=== PATIENT | female | born 1990 | race American Indian/Alaskan Native ===

== ENCOUNTER 2018-11-18 12:14 | Inpatient (IN) | payer BC ==
[2018-11-18 22:14] VITALS: BMI 22.5
[2018-11-19 06:59] LABS: HEMOGLOBIN 12.5 g/dL (12.0-16.0); MEAN CORPUSCULAR HEMOGLOBIN 29.2 pg (27.0-31.0); MEAN CORPUSCULAR HGB CONC 32.8 g/dL (33.0-37.0); RBC 4.28 Mil/uL (3.80-5.20); RED CELL DISTRIBUTION WIDTH 16.9 % (11.5-14.5); WHITE BLOOD COUNT 4.3 K/uL (4.8-10.8)
[2018-11-19 07:01] LABS: ALB/GLOB RATIO 1.3 (1.0-2.1); ALBUMIN 4.5 g/dL (3.5-5.0); ALT/SGPT 44 U/L (9-52); AST/SGOT 40 U/L (14-36); BLOOD UREA NITROGEN 13 mg/dl (7-17); CALCIUM 9.2 mg/dL (8.4-10.2); GFR NON-AFRICAN AMERICAN > 60
[2018-11-19 07:02] LABS: INR 1.2; PROTHROMBIN TIME 13.4 Seconds (9.8-13.1)
[2018-11-19 07:05] LABS: PARTIAL THROMBOPLASTIN TIME 33.2 Seconds (25.6-37.1)
[2018-11-19] MEDS: Pantoprazole 40 mg EC Tab PO SCH (08:36)
[2018-11-19] MEDS: Apap-Butalbital-Caffeine 325-50-40mg Tab PO PRN ×2 (11:03→17:07)
--- NOTE | 2018-11-19 20:23 | CP.PCM.CON ---
History of Present Illness - History of Present Illness History of Present Illness: 27 year old female with recurrent CVA, MTHFR mutation, recent subdural hematoma s/p ke hole at [facility] [place], admitted to rehab. The patient had been intermittently on antiplatelet and anticoagulation but she notes to not being fully compliant. She began to have a severe headache and came to the hospital and found to have a subdural hemorrhage requiring ke hole be neurosurgery. Neurosurgical recommendation was for her to not restart antiplatelet and anticoagulation for minimum of 3 weeks. She currently notes to intermittent headache but feels this is improving. Past medical history: recurrent CVA, MTHFR mutation Past surgical history: ke hole surgery Family history: Sister had recurrent CVA Social history: + tobacco Allergies: NKA Review of systems: All remaining review of systems including HEENT, cardiovascular, respiratory, gastrointestinal, genitourinary, musculoskeletal, dermatologic, neurologic, and psychiatric are negative unless mentioned in the HPI. Past Patient History - Past Medical History & Family History Past Medical History?: Yes - Past Social History Smoking Status: Light Smoker < 10 Cigarettes Daily - NEUROLOGICAL HX Cerebrovascular Accident: Yes (2015) Hx Transient Ischemic Attacks (TIA): Yes (2014) - HEMATOLOGICAL/ONCOLOGICAL Hx AIDS: No Hx Anemia: Yes Hx Human Immunodeficiency Virus (HIV): No - MUSCULOSKELETAL/RHEUMATOLOGICAL Hx Falls: No Other/Comment: 11/12/18 recently with left leg weakness, unsteady gait. left leg tends to buckle. - PSYCHIATRIC Hx Substance Use: No - SURGICAL HISTORY Other/Comment: 11/12/2018 - right sided frontal ke hole for drainage of subacute subdural hematoma & insertion of subdural. drain. - ANESTHESIA Hx Anesthesia: Yes Hx Anesthesia Reactions: No Hx Malignant Hyperthermia: No Has any member of the family had a problem w/ anesthesia?: No Meds Allergies/Adverse Reactions: Allergies Allergy/AdvReac Type Severity Reaction Status Date / Time No Known Allergies Allergy Verified 09/08/14 10:40 - Medications Medications: Current Medications Acetaminophen/Butalbital/Caffeine (Fioricet) 1 tab PO Q6 PRN PRN Reason: Headache Last Admin: 11/19/18 17:07 Dose: 1 tab Folic Acid (Folic Acid) 1 mg PO DAILY [facility] Last Admin: 11/19/18 08:36 Dose: 1 mg Levetiracetam (Keppra) 500 mg PO Q12 [facility] Nicotine (Nicoderm Cq) 1 patch TD DAILY [facility] Last Admin: 11/19/18 08:36 Dose: 1 patch Pantoprazole Sodium (Protonix Ec Tab) 40 mg PO DAILY [facility] Last Admin: 11/19/18 08:36 Dose: 40 mg Physical Exam - Head Exam Head Exam: ATRAUMATIC - Eye Exam Eye Exam: Normal appearance - ENT Exam ENT Exam: Mucous Membranes Dry - Respiratory Exam Respiratory Exam: NORMAL BREATHING PATTERN - Cardiovascular Exam Cardiovascular Exam: +S1, +S2 - GI/Abdominal Exam GI & Abdominal Exam: Normal Bowel Sounds - Extremities Exam Extremities exam: Positive for: normal inspection - Neurological Exam Neurological exam: Oriented x3 - Psychiatric Exam Psychiatric exam: Normal Affect, Normal Mood - Skin Skin Exam: Warm Results - Vital Signs Recent Vital Signs: Last Vital Signs Temp 97.0 F L 11/19/18 08:46 Pulse 81 11/19/18 09:00 Resp 21 11/19/18 08:46 BP 116/73 11/19/18 08:46 Pulse Ox 97 11/19/18 16:21 - Labs Result Diagrams: 11/19/18 05:15 11/19/18 05:15 Labs: Laboratory Results - last 24 hr 11/19/18 11/19/18 11/19/18 05:15 05:15 05:15 WBC 4.3 L RBC 4.28 Hgb 12.5 Hct 38.1 MCV 89.0 MCH 29.2 MCHC 32.8 L RDW 16.9 H Plt Count 286 PT 13.4 H INR 1.2 APTT 33.2 Sodium 139 Potassium 4.1 Chloride 103 Carbon Dioxide 23 Anion Gap 17 BUN 13 Creatinine 0.6 L Est GFR ( Amer) > 60 Est GFR (Non-Af Amer) > 60 Random Glucose 87 Calcium 9.2 Total Bilirubin 0.5 AST 40 H ALT 44 Alkaline Phosphatase 51 Total Protein 7.9 Albumin 4.5 Globulin 3.4 Albumin/Globulin Ratio 1.3 Vitamin B12 450 TSH 3rd Generation 3.13 Assessment & Plan (1) MTHFR gene mutation Assessment and Plan: complicated by recurrent CVA folic acid daily to resume aspirin and eliquis in 3 weeks Status: Acute (2) Leukopenia Assessment and Plan: benign no intervention Thank you for this interesting consult. Status: Acute
--- NOTE | 2018-11-19 21:10 | PCM.OPOC ---
Physiatry Overall Plan of Care - Overall Plan of Care Estimated Length of Stay in Weeks: 3 Rehab Impairment: Mobility, Gait, Balance, Coordination Etiologic Diagnosis: Traumatic Brain Injury Rehab/Medical Prognosis: Fair - Anticipated Interventions Physical Therapy:: Yes Number of Hours: 1 Number of times per week: 5 Number of Week(s) Duration: 3 Occupational Therapy:: Yes Number of Hours: 1 Number of times per week: 5 Number of Week(s) Duration: 3 Speech Therapy:: Yes Number of Hours: 1 Number of times per week: 5 Number of Week(s) Duration: 3 Recreational Therapy:: Yes Number of Hours: 1 Number of times per week: 5 Number of Week(s) Duration: 3 - Therapy Goals Bed Mobility: Independent Ambulation: Supervision Functional Positional Changes:: Independent - Functional Status Prior to Admission: patient was independent Current Status: needs assistance in all Adls, transfers, and gait - Functional Outcomes Functional Outcomes: fair - Discharge Plan Identification of Barriers to Discharge: Cognition Discharge Destination: Home
--- NOTE | 2018-11-19 21:13 | PCM.CPAPS ---
History of Present Illness - History of Present Illness History of Present Illness: 27 year old female admitted to acute rehab with diagnosis of subdural heamatoma, status post headache, status post drainage with ke holes, history of MTHFU mutation gene. Now for therapy program Review of Systems - Musculoskeletal Musculoskeletal: Muscle Weakness - Neurological Neurological: Abnormal Gait, Headaches, Weakness Past Patient History - Past Medical History & Family History Past Medical History?: Yes - Past Social History Smoking Status: Light Smoker < 10 Cigarettes Daily - NEUROLOGICAL HX Cerebrovascular Accident: Yes (2015) Hx Transient Ischemic Attacks (TIA): Yes (2013) - HEMATOLOGICAL/ONCOLOGICAL Hx AIDS: No Hx Anemia: Yes Hx Human Immunodeficiency Virus (HIV): No - MUSCULOSKELETAL/RHEUMATOLOGICAL Hx Falls: No Other/Comment: 11/12/18 recently with left leg weakness, unsteady gait. left leg tends to buckle. - PSYCHIATRIC Hx Substance Use: No - SURGICAL HISTORY Other/Comment: 11/12/2018 - right sided frontal ke hole for drainage of subacute subdural hematoma & insertion of subdural. drain. - ANESTHESIA Hx Anesthesia: Yes Hx Anesthesia Reactions: No Hx Malignant Hyperthermia: No Has any member of the family had a problem w/ anesthesia?: No Meds Allergies/Adverse Reactions: Allergies Allergy/AdvReac Type Severity Reaction Status Date / Time No Known Allergies Allergy Verified 09/08/14 10:40 - Medications Medications: Current Medications Acetaminophen/Butalbital/Caffeine (Fioricet) 1 tab PO Q6 PRN PRN Reason: Headache Last Admin: 11/19/18 17:07 Dose: 1 tab Folic Acid (Folic Acid) 1 mg PO DAILY [facility] Last Admin: 11/19/18 08:36 Dose: 1 mg Levetiracetam (Keppra) 500 mg PO Q12 [facility] Nicotine (Nicoderm Cq) 1 patch TD DAILY [facility] Last Admin: 11/19/18 08:36 Dose: 1 patch Pantoprazole Sodium (Protonix Ec Tab) 40 mg PO DAILY [facility] Last Admin: 11/19/18 08:36 Dose: 40 mg Physical Exam - Constitutional Appears: Well - Head Exam Head Exam: ATRAUMATIC, NORMAL INSPECTION, NORMOCEPHALIC Additional comments: status post ke holes for drainage - Eye Exam Eye Exam: EOMI, Normal appearance, PERRL Pupil Exam: NORMAL ACCOMODATION, PERRL - ENT Exam ENT Exam: Mucous Membranes Moist, Normal Exam - Neck Exam Neck exam: Positive for: Normal Inspection - Respiratory Exam Respiratory Exam: NORMAL BREATHING PATTERN - Cardiovascular Exam Cardiovascular Exam: REGULAR RHYTHM - GI/Abdominal Exam GI & Abdominal Exam: Normal Bowel Sounds - Rectal Exam Rectal Exam: NORMAL INSPECTION - Exam External exam: NORMAL EXTERNAL EXAM - Extremities Exam Extremities exam: Positive for: normal inspection Additional comments: left sided weakness - Back Exam Back exam: NORMAL INSPECTION - Neurological Exam Neurological exam: Alert - Psychiatric Exam Psychiatric exam: Normal Affect Results - Vital Signs Recent Vital Signs: Last Vital Signs Temp 96.8 F L 11/19/18 20:42 Pulse 85 11/19/18 20:42 Resp 20 11/19/18 20:42 BP 122/72 11/19/18 20:42 Pulse Ox 100 11/19/18 20:42 - Labs Result Diagrams: 11/19/18 05:15 11/19/18 05:15 Labs: Laboratory Results - last 24 hr 11/19/18 11/19/18 11/19/18 05:15 05:15 05:15 WBC 4.3 L RBC 4.28 Hgb 12.5 Hct 38.1 MCV 89.0 MCH 29.2 MCHC 32.8 L RDW 16.9 H Plt Count 286 PT 13.4 H INR 1.2 APTT 33.2 Sodium 139 Potassium 4.1 Chloride 103 Carbon Dioxide 23 Anion Gap 17 BUN 13 Creatinine 0.6 L Est GFR ( Amer) > 60 Est GFR (Non-Af Amer) > 60 Random Glucose 87 Calcium 9.2 Total Bilirubin 0.5 AST 40 H ALT 44 Alkaline Phosphatase 51 Total Protein 7.9 Albumin 4.5 Globulin 3.4 Albumin/Globulin Ratio 1.3 Vitamin B12 450 TSH 3rd Generation 3.13 Assessment & Plan (1) MTHFR gene mutation Status: Acute - Assessment and Plan (Free Text) Assessment: patient with diagnosis of subdural heamatoma status post drainage with ke holes, with history of MTHER gene mutation, CVA, anamia and hypercoaguable states now for acute rehab for physical, occupational, rec and speech therapy program - Functional Status Prior to Admission: Independent Current Status: needs assistance with adls, transfers and gait Impairment Code: 01.1
[2018-11-20] MEDS: Apap-Butalbital-Caffeine 325-50-40mg Tab PO PRN ×2 (00:12→21:37)
[2018-11-20] MEDS: Pantoprazole 40 mg EC Tab PO SCH (09:11)
--- NOTE | 2018-11-20 12:28 | CP.PCM.CON ---
History of Present Illness - History of Present Illness History of Present Illness: Neurology Consultation Note: Consult requested by Dr. Brannon Ms. Gold is a 27-year-old woman with a past medical history of CVA, MTHFR mutation, who had a recent SDH requiring evacuation through ke hole at [facility] [place] by neurosurgery. She continues to have headaches mostly with activity. She was previously on antiplatelet agents and anticoagulation. This was stopped after the SDH. She was told that she can resume anticoagulation for her hematological condition 3 weeks after surgery. There is a plan to resume Eliquis on 12/01. She was started on Keppra for seizure prophylaxis. She does not recall ever having a seizure and was told that Keppra would be stopped. Review of Systems - Constitutional Constitutional: As Per HPI - EENT Eyes: absent: As Per HPI, Blind Spots, Blurred Vision, Change in Vision, Decreased Night Vision, Diplopia, Discharge, Dry Eye, Exophthalmos, Floaters, Irritation, Itchy Eyes, Loss of Peripheral Vision, Pain, Photophobia, Requires Corrective Lenses, Sees Flashes, Spots in Vision, Tunnel Vision, Other Visual Disturbances, Loss of Vision, Other Ears: absent: As Per HPI, Decreased Hearing, Ear Discharge, Ear Pain, Tinnitus, Abnormal Hearing, Disequilibrium, Dizziness, Other Nose/Mouth/Throat: absent: As Per HPI, Epistaxis, Nasal Congestion, Nasal Discharge, Nasal Obstruction, Nasal Trauma, Nose Pain, Post Nasal Drip, Sinus Pain, Sinus Pressure, Bleeding Gums, Change in Voice, Dental Pain, Dry Mouth, Dysphagia, Halitosis, Hoarsness, Lip Swelling, Mouth Lesions, Mouth Pain, Odynophagia, Sore Throat, Throat Swelling, Tongue Swelling, Facial Pain, Neck Pain, Neck Mass, Other - Cardiovascular Cardiovascular: absent: As Per HPI, Acrocyanosis, Chest Pain, Chest Pain at Rest, Chest Pain with Activity, Claudication, Diaphoresis, Dyspnea, Dyspnea on Exertion, Edema, Irregular Heart Rhythm, Pain Radiating to Arm/Neck/Jaw, Leg Edema, Leg Ulcers, Lightheadedness, Orthopnea, Palpitations, Paroxysmal Nocturnal Dyspnea, Pedal Edema, Radiating Pain, Rapid Heart Rate, Slow Heart Rate, Syncope, Other - Respiratory Respiratory: absent: As Per HPI, Cough, Dyspnea, Hemoptysis, Dyspnea on Exertion, Wheezing, Snoring, Stridor, Pain on Inspiration, Chest Congestion, Excessive Mucous Production, Change in Mucous Color, Pain with Coughing, Other - Gastrointestinal Gastrointestinal: absent: As Per HPI, Abdominal Pain, Belching, Bloating, Change in Bowel Habits, Change in Stool Character, Coffee Ground Emesis, Constipation, Cramping, Diarrhea, Dyspepsia, Dysphagia, Early Satiety, Excessive Flatus, Fecal Incontinence, Heartburn, Hematemesis, Hematochezia, Loose Stools, Melena, Nausea, Odynophagia, Temesmus, Vomiting, Other - Musculoskeletal Musculoskeletal: absent: As Per HPI, Abnormal Gait, Arthralgias, Atrophy, Back Pain, Deformity, Joint Swelling, Limited Range of Motion, Loss of Height, Muscle Cramps, Muscle Weakness, Myalgias, Neck Pain, Numbness, Radiating Pain into Limb, Stiffness, Tingling, Other - Neurological Neurological: As Per HPI - Psychiatric Psychiatric: absent: As Per HPI, Abnormal Sleep Pattern, Anhedonia, Anxiety, Auditory Hallucinations, Behavioral Changes, Change in Appetite, Change in Libido, Confusion, Depression, Difficulty Concentrating, Hallucinations, Homicidal Ideation, Hopelessness, Irritability, Memory Loss, Mood Swings, Panic Attacks, Paranoia, Suicidal Ideation, Visual Hallucinations, Tactile Hallucinations, Other - Endocrine Endocrine: absent: As Per HPI, Change in Body Appearance, Change in Libido, Cold Intolorance, Deepening of Voice, Excessive Sweating, Fatigue, Flushing, Heat Intolorance, Increase in Ring/Shoe/Hat Size, Palpitations, Polydipsia, Polyphagia, Polyuria, Other - Hematologic/Lymphatic Hematologic: absent: As Per HPI, Easy Bleeding, Easy Bruising, Lymphadenopathy, Other Past Patient History - Past Medical History & Family History Past Medical History?: Yes - Past Social History Smoking Status: Light Smoker < 10 Cigarettes Daily - NEUROLOGICAL HX Cerebrovascular Accident: Yes (2016) Hx Transient Ischemic Attacks (TIA): Yes (2014) - HEMATOLOGICAL/ONCOLOGICAL Hx AIDS: No Hx Anemia: Yes Hx Human Immunodeficiency Virus (HIV): No - MUSCULOSKELETAL/RHEUMATOLOGICAL Hx Falls: No Other/Comment: 11/12/18 recently with left leg weakness, unsteady gait. left leg tends to buckle. - PSYCHIATRIC Hx Substance Use: No - SURGICAL HISTORY Other/Comment: 11/12/2018 - right sided frontal ke hole for drainage of subacute subdural hematoma & insertion of subdural. drain. - ANESTHESIA Hx Anesthesia: Yes Hx Anesthesia Reactions: No Hx Malignant Hyperthermia: No Has any member of the family had a problem w/ anesthesia?: No Meds Allergies/Adverse Reactions: Allergies Allergy/AdvReac Type Severity Reaction Status Date / Time No Known Allergies Allergy Verified 09/08/14 10:40 - Medications Medications: Current Medications Acetaminophen/Butalbital/Caffeine (Fioricet) 1 tab PO Q6 PRN PRN Reason: Headache Last Admin: 11/20/18 00:12 Dose: 1 tab Folic Acid (Folic Acid) 1 mg PO DAILY [facility] Last Admin: 11/20/18 09:11 Dose: 1 mg Levetiracetam (Keppra) 500 mg PO Q12 [facility] Last Admin: 11/20/18 09:11 Dose: 500 mg Nicotine (Nicoderm Cq) 1 patch TD DAILY [facility] Last Admin: 11/20/18 09:13 Dose: Not Given Pantoprazole Sodium (Protonix Ec Tab) 40 mg PO DAILY [facility] Last Admin: 11/20/18 09:11 Dose: 40 mg Physical Exam - Constitutional Appears: Well - Head Exam Head Exam: ATRAUMATIC, NORMOCEPHALIC - Eye Exam Eye Exam: EOMI, Normal appearance, PERRL Pupil Exam: NORMAL ACCOMODATION, PERRL - ENT Exam ENT Exam: Mucous Membranes Moist, Normal Exam - Neck Exam Neck exam: Positive for: Normal Inspection - Respiratory Exam Respiratory Exam: Clear to Auscultation Bilateral, NORMAL BREATHING PATTERN - Cardiovascular Exam Cardiovascular Exam: REGULAR RHYTHM - GI/Abdominal Exam GI & Abdominal Exam: Normal Bowel Sounds, Soft. absent: Tenderness - Rectal Exam Rectal Exam: NORMAL INSPECTION - Exam Exam: Circumcision, NORMAL INSPECTION External exam: NORMAL EXTERNAL EXAM Speculum exam: NORMAL SPECULUM EXAM Bimanual exam: NORMAL BIMANUAL EXAM - Extremities Exam Extremities exam: Positive for: normal inspection - Back Exam Back exam: NORMAL INSPECTION - Neurological Exam Neurological exam: Alert, CN II-XII Intact, Normal Gait, Oriented x3, Reflexes Normal - Psychiatric Exam Psychiatric exam: Normal Affect, Normal Mood - Skin Skin Exam: Dry, Intact, Normal Color, Warm Results - Vital Signs Recent Vital Signs: Last Vital Signs Temp 97.9 F 11/20/18 07:26 Pulse 73 11/20/18 07:26 Resp 22 11/20/18 07:26 BP 103/55 L 11/20/18 07:26 Pulse Ox 99 11/20/18 07:26 - Labs Result Diagrams: 11/19/18 05:15 11/19/18 05:15 Assessment & Plan (1) Subdural hemorrhage Assessment and Plan: May treat headache with magnesium oxide 400 mg BID. Obtain repeat CT head without contrast on 11/29 to evaluate for resolution of blood prior to starting anticoagulation per neuro-surgery. Will stop Keppra. Thank you for this consultation. Status: Acute
--- NOTE | 2018-11-20 13:53 | CP.PCM.PN ---
Subjective - Date & Time of Evaluation Date of Evaluation: 11/20/18 Time of Evaluation: 13:00 - Subjective Subjective: patient resting in bed , no acute complaints of pain, still with left leg weakness Objective - Vital Signs/Intake and Output Vital Signs (last 24 hours): Temp Pulse Resp BP Pulse Ox 97.9 F 73 22 103/55 L 99 11/20/18 07:26 11/20/18 07:26 11/20/18 07:26 11/20/18 07:26 11/20/18 07:26 - Medications Medications: Current Medications Acetaminophen/Butalbital/Caffeine (Fioricet) 1 tab PO Q6 PRN PRN Reason: Headache Last Admin: 11/20/18 00:12 Dose: 1 tab Folic Acid (Folic Acid) 1 mg PO DAILY [facility] Last Admin: 11/20/18 09:11 Dose: 1 mg Nicotine (Nicoderm Cq) 1 patch TD DAILY [facility] Last Admin: 11/20/18 09:13 Dose: Not Given Pantoprazole Sodium (Protonix Ec Tab) 40 mg PO DAILY [facility] Last Admin: 11/20/18 09:11 Dose: 40 mg - Labs Labs: 11/19/18 05:15 11/19/18 05:15 PT 13.4 Seconds (9.8-13.1) H 11/19/18 05:15 INR 1.2 11/19/18 05:15 APTT 33.2 Seconds (25.6-37.1) 11/19/18 05:15 - Constitutional Appears: Well - Head Exam Head Exam: ATRAUMATIC, NORMAL INSPECTION, NORMOCEPHALIC - Eye Exam Eye Exam: EOMI, Normal appearance, PERRL Pupil Exam: NORMAL ACCOMODATION - ENT Exam ENT Exam: Mucous Membranes Moist, Normal Exam - Neck Exam Neck Exam: Full ROM, Normal Inspection - Respiratory Exam Respiratory Exam: Clear to Ausculation Bilateral, NORMAL BREATHING PATTERN - Cardiovascular Exam Cardiovascular Exam: REGULAR RHYTHM - GI/Abdominal Exam GI & Abdominal Exam: Soft, Normal Bowel Sounds - Rectal Exam Rectal Exam: NORMAL INSPECTION - Exam External exam: NORMAL EXTERNAL EXAM - Extremities Exam Extremities Exam: Full ROM, Normal Capillary Refill, Normal Inspection - Back Exam Back Exam: NORMAL INSPECTION - Neurological Exam Neurological Exam: Alert, Awake Neuro motor strength exam: Left Lower Extremity: 3 - Psychiatric Exam Psychiatric exam: Normal Affect - Skin Skin Exam: Dry Assessment and Plan (1) MTHFR gene mutation Status: Acute (2) Subdural hemorrhage Assessment & Plan: plan for physical, occupational, rec therapy program, neurology follow up Status: Acute
[2018-11-20] MEDS: Magnesium Oxide 400 mg Tab UD PO SCH (17:29)
[2018-11-21] MEDS: Pantoprazole 40 mg EC Tab PO SCH (08:47)
[2018-11-21] MEDS: Magnesium Oxide 400 mg Tab UD PO SCH ×2 (08:47→18:00)
[2018-11-21] MEDS: Apap-Butalbital-Caffeine 325-50-40mg Tab PO PRN ×2 (10:42→21:16)
--- NOTE | 2018-11-21 11:42 | CP.PCM.PN ---
Subjective - Date & Time of Evaluation Date of Evaluation: 11/21/18 Time of Evaluation: 08:30 - Subjective Subjective: no acute complaints at present Objective - Vital Signs/Intake and Output Vital Signs (last 24 hours): Temp Pulse Resp BP Pulse Ox 98.4 F 69 22 116/70 99 11/21/18 08:04 11/21/18 08:04 11/21/18 08:04 11/21/18 08:04 11/21/18 08:04 - Medications Medications: Current Medications Acetaminophen/Butalbital/Caffeine (Fioricet) 1 tab PO Q6 PRN PRN Reason: Headache Last Admin: 11/21/18 10:42 Dose: 1 tab Folic Acid (Folic Acid) 1 mg PO DAILY [facility] Last Admin: 11/21/18 08:46 Dose: 1 mg Magnesium Oxide (Mag-Ox) 400 mg PO BID [facility] Last Admin: 11/21/18 08:47 Dose: 400 mg Nicotine (Nicoderm Cq) 1 patch TD DAILY [facility] Last Admin: 11/21/18 08:44 Dose: 1 patch Pantoprazole Sodium (Protonix Ec Tab) 40 mg PO DAILY [facility] Last Admin: 11/21/18 08:47 Dose: 40 mg - Labs Labs: 11/19/18 05:15 11/19/18 05:15 PT 13.4 Seconds (9.8-13.1) H 11/19/18 05:15 INR 1.2 11/19/18 05:15 APTT 33.2 Seconds (25.6-37.1) 11/19/18 05:15 - Constitutional Appears: Well - Head Exam Head Exam: ATRAUMATIC, NORMAL INSPECTION, NORMOCEPHALIC - Eye Exam Eye Exam: EOMI, Normal appearance, PERRL Pupil Exam: NORMAL ACCOMODATION, PERRL - ENT Exam ENT Exam: Mucous Membranes Moist, Normal Exam - Neck Exam Neck Exam: Full ROM, Normal Inspection - Respiratory Exam Respiratory Exam: Clear to Ausculation Bilateral, NORMAL BREATHING PATTERN - Cardiovascular Exam Cardiovascular Exam: REGULAR RHYTHM - GI/Abdominal Exam GI & Abdominal Exam: Soft, Normal Bowel Sounds - Rectal Exam Rectal Exam: NORMAL INSPECTION - Exam External exam: NORMAL EXTERNAL EXAM - Extremities Exam Extremities Exam: Full ROM, Normal Capillary Refill, Normal Inspection - Back Exam Back Exam: NORMAL INSPECTION - Neurological Exam Neurological Exam: Alert, Awake Neuro motor strength exam: Left Upper Extremity: 3, Right Upper Extremity: 3, Left Lower Extremity: 2/1, Right Lower Extremity: 3 - Psychiatric Exam Psychiatric exam: Normal Mood - Skin Skin Exam: Normal Color Assessment and Plan (1) MTHFR gene mutation Status: Acute (2) Subdural hemorrhage Assessment & Plan: plan to continue with strengthening of left leg, plan for physical, occupational, rec and therapy Status: Acute
--- NOTE | 2018-11-21 13:12 | CT ---
Date of service: 11/21/2018 PROCEDURE: CT HEAD WITHOUT CONTRAST. 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 Radiation dose: Total exam DLP = 902.24 mGy-cm. This CT exam was performed using one or more of the following dose reduction techniques: Automated exposure control, adjustment of the mA and/or kV according to patient size, and/or use of iterative reconstruction technique. FINDINGS: HEMORRHAGE: There is residual small mixed attenuation extra-axial collection consistent with a subacute to chronic subdural hematoma and suspected element of underlying granulation tissue likely by membrane formation. The collection exerts mild mass effect on the right cerebral hemisphere however no significant right to left midline shift. Small right superior frontoparietal ke hole is present with overlying scalp scar. BRAIN: Mild generalized volume loss VENTRICLES: No obstructive hydrocephalus. CALVARIUM: Apart from aforementioned right superior frontoparietal ke hole, calvarium intact. PARANASAL SINUSES: Unremarkable as visualized. No significant inflammatory changes. MASTOID AIR CELLS: Unremarkable as visualized. No inflammatory changes. OTHER FINDINGS: None. IMPRESSION: There is a small to medium size residual mixed attenuation extra-axial collection likely representing some combination of chronic and subacute subdural hematoma and granulation tissue by membrane formation.. The extra-axial collection exerts mild mass-effect on the right cerebral hemisphere however no significant midline shift.. Overlying right superior frontoparietal ke hole. Mild generalized volume loss.
[2018-11-21] MEDS ORDERED: Dexamethasone 10 MG in Dextrose 5% In Water 50 ML IV ONE (13:35)
[2018-11-21] MEDS ORDERED: Valproate 500 MG in Sodium Chloride 0.9% 100 ML IVPB ONE (13:35)
--- NOTE | 2018-11-21 13:35 | PCM.RRT ---
<Frederick Mckenzie - Last Filed: 11/21/18 14:58> BSS SOLUTION ARCHITECT Nurse Assessment - Situation BSS SOLUTION ARCHITECT Responder Arrival Time: 12:18 (For headache) BSS SOLUTION ARCHITECT Reason for Call: Looks Sicker BSS SOLUTION ARCHITECT Called By: RN - IV IV Inserted during BSS SOLUTION ARCHITECT?: Yes I.Reason for BSS SOLUTION ARCHITECT - A) Acute Change in Patient: (Select all that apply): Staff member or family is worried about patient Subjective: 27-year-old woman with a PMHx of CVA, MTHFR mutation, who had a recent SDH requiring evacuation through ke hole at [facility] by neurosurgery admitted for acute rehab. BSS SOLUTION ARCHITECT called at 12:17 pm by RN for headache. BSS SOLUTION ARCHITECT team arrived with Dr. Laurent. Patient reports 10/10 severe headache, with associated nausea. Patient lying in position in bed. Initial vitals: HR 130, BP 133/80. On physical exam Patient has residual neurological deficit but no new deficits. PERRLA, No new focal weakness. Patient given Zofran IV 4 mg stat, Morphine [address] head Stat w/o contrast. - Dr. Srivastava called and made aware about patient by Dr. Laurent. - Dr. Srivastava will follow after head CT - Neurological Status (Select all that apply): Alert, Responsive, Oriented, Verbal, Follows Commands. absent: Disoriented, Confused, Lethargic, Aggressive, Weakness - Constitutional Appears: In Acute Distress - Head Additional Comments: Arvin hole S/P surgery - Eyes Eye Exam: EOMI, Normal appearance, PERRL. absent: Nystagmus - Respiratory Exam Respiratory Exam: Clear to Ausculation Bilateral, NORMAL BREATHING PATTERN - Cardiovascular Exam Cardiovascular Exam: REGULAR RHYTHM, +S1, +S2 - Neurological Exam Neurological Exam: Alert, Awake, Oriented x3 Plan - Assessment of Findings&Treatment Plan BSS SOLUTION ARCHITECT called for 27 y/o F s/p subdural hematoma and ke hole surgery at [facility] due to severe 10/10 headache. No new neurological deficits. Initial vitals: HR 130, BP 137/80 - Start Morphine 2 mg IV for headache - Zofran 4 mg IV for nausea - STAT head CT w/o contrast - Dr. Srivastava made aware, who will follow up regarding CT scan. - Monitor vitals and neurological status. Dr. Srivastava reviewed CT head: The CT head does not show any midline shift or acute blood. There are some chronic and subacute components of the SDH. Ordered decadron, magnesium sulfate and depakote for her headache after CT head was done and it was not concerning. Case discussed with Dr. Laurent. <Joanie Laurent - Last Filed: 11/21/18 17:09> BSS SOLUTION ARCHITECT Nurse Assessment - Vital Signs Vital Signs: Rapid Response Vital Sign Blood Pressure 133/80 Pulse Rate 133 Respiratory Rate 24 Temperature 98 F Oxygen Saturation 99 - Vital Signs at end of BSS SOLUTION ARCHITECT Vital Signs at end of BSS SOLUTION ARCHITECT: Rapid Response End Vital Sign Blood Pressure 142/88 Pulse Rate 88 Respiratory Rate 20 Temperature 98.1 F O2 Sat by Pulse Oximetry 98 Attending/Attestation - Attestation I have personally seen and examined this patient.: Yes I have fully participated in the care of the patient.: Yes I have reviewed all pertinent clinical information, including history, physical exam and plan: Yes Notes (Text): 11/21/18 17:09 agree with findings and plan as above
[2018-11-21] MEDS ORDERED: Magnesium Sulfate 1 gm in D5W 1 GM/100 ML BAG IVPB SCH (13:45)
--- NOTE | 2018-11-21 14:24 | CP.PCM.PCO ---
Physician Communication Note - Physician Communication Note Physician Communication Note: Reviewed CT head Addendum Addendum: The CT head does not show any midline shift or acute blood. There are some chronic and subacute components of the SDH. I ordered decadron, magnesium faith lfate and depakote for her headache after CT head was done and it was not concerning.
--- NOTE | 2018-11-21 23:06 | CP.PCM.PCO ---
Addendum Addendum: Received call from RN that patient was experiencing nausea. Came to assess patient - she is alert, oriented, with clear speech, appears calm not in acute distress. Denies new focal deficits or new focal weakness, states she feels tired after therapy today. Earlier today she had [facility] [employer] called for headache and nausea; CT head was done and reviewed by neurology. Headache since resolved. Pupils round, equal, reactive to light, symmetrical No facial droop Speech clear 5/5 upper extremity strength 4/5 lower extremity strength, chronic Sensation intact throughout Will order 4 mg IVP zofran.
[2018-11-22] MEDS: Pantoprazole 40 mg EC Tab PO SCH (09:00)
[2018-11-22] MEDS: Magnesium Oxide 400 mg Tab UD PO SCH ×2 (09:00→16:23)
[2018-11-22] MEDS: Apap-Butalbital-Caffeine 325-50-40mg Tab PO PRN ×2 (16:23→22:19)
[2018-11-23] MEDS: Pantoprazole 40 mg EC Tab PO SCH (08:00)
[2018-11-23] MEDS: Magnesium Oxide 400 mg Tab UD PO SCH ×2 (08:01→15:59)
[2018-11-23] MEDS: Apap-Butalbital-Caffeine 325-50-40mg Tab PO PRN ×3 (10:21→21:43)
[2018-11-23] MEDS: MIDOL PO PRN ×2 (15:58→21:45)
[2018-11-24] MEDS: Magnesium Oxide 400 mg Tab UD PO SCH ×2 (08:52→17:37)
[2018-11-24] MEDS: Pantoprazole 40 mg EC Tab PO SCH (08:53)
--- NOTE | 2018-11-24 11:06 | CP.PCM.PN ---
Subjective - Date & Time of Evaluation Date of Evaluation: 11/24/18 Time of Evaluation: 11:04 - Subjective Subjective: Neuro Follow-Up Note: Ms. Gold was evaluated this afternoon in acute rehab. She is still complaining of a throbbing h/a to the area where she had a ke hole procedure done. At this time she is comfortable, but she states that her h/a can get up to 6-7/10 and that is unbearable for her. She is doing well with therapy. She is unsure of who the neurosurgeon was at [facility] and is unsure if she has to f/u with him. Currently she denies dizziness, visual changes, chest pain, palpitations, sob, cough, abd pain, n/v/d, fever/chills, paresthesias. Objective - Vital Signs/Intake and Output Vital Signs (last 24 hours): Temp Pulse Resp BP Pulse Ox 97.7 F 68 21 100/65 98 11/24/18 08:16 11/24/18 08:16 11/24/18 08:16 11/24/18 08:16 11/24/18 08:16 - Medications Medications: Current Medications Acetaminophen/Butalbital/Caffeine (Fioricet) 1 tab PO Q6 PRN PRN Reason: Headache Last Admin: 11/23/18 21:43 Dose: 1 tab Folic Acid (Folic Acid) 1 mg PO DAILY [facility] Last Admin: 11/24/18 08:53 Dose: 1 mg Home Med (Patient's Own Medication) 2 unit PO Q6 PRN PRN Reason: Pain, moderate (4-7) Last Admin: 11/23/18 21:45 Dose: 2 unit Magnesium Sulfate/Dextrose (Magnesium Sulfate 1 Gm/100 Ml D5w) 1 gm in 100 mls @ 200 mls/hr IVPB ONCE [facility] Last Admin: 11/21/18 18:52 Dose: 200 mls/hr Magnesium Oxide (Mag-Ox) 400 mg PO BID [facility] Last Admin: 11/24/18 08:52 Dose: 400 mg Nicotine (Nicoderm Cq) 1 patch TD DAILY [facility] Last Admin: 11/24/18 08:54 Dose: Not Given Ondansetron HCl (Zofran Tab) 4 mg PO Q6 PRN PRN Reason: Nausea/Vomiting Pantoprazole Sodium (Protonix Ec Tab) 40 mg PO DAILY [facility] Last Admin: 11/24/18 08:53 Dose: 40 mg - Labs Labs: 11/19/18 05:15 11/19/18 05:15 PT 13.4 Seconds (9.8-13.1) H 11/19/18 05:15 INR 1.2 11/19/18 05:15 APTT 33.2 Seconds (25.6-37.1) 11/19/18 05:15 - Constitutional Appears: Well, Non-toxic, No Acute Distress - Head Exam Additional comments: Healing surgical site to right frontal area - Eye Exam Eye Exam: EOMI, Normal appearance, PERRL Pupil Exam: NORMAL ACCOMODATION, PERRL - ENT Exam ENT Exam: Mucous Membranes Moist - Neck Exam Neck Exam: Full ROM, Normal Inspection - Respiratory Exam Respiratory Exam: NORMAL BREATHING PATTERN - Extremities Exam Extremities Exam: Full ROM, Normal Inspection. absent: Calf Tenderness, Pedal Edema - Neurological Exam Neurological Exam: Alert, Awake, CN II-XII Intact, Oriented x3, Reflexes Normal Neuro motor strength exam: Left Upper Extremity: 5 (distal 5/5), Right Upper Extremity: 5 (distal 5/5), Left Lower Extremity: 5 (distal 5/5), Right Lower Extremity: 5 (distal 5/5) Additional comments: No focal motor or sensory deficits No tremors or abnormal movements - Psychiatric Exam Psychiatric exam: Normal Affect, Normal Mood - Skin Skin Exam: Normal Color Additional comments: Healing surgical site to right frontal area Assessment and Plan (1) Subdural hemorrhage Assessment & Plan: Imaging reviewed: -CT Head (11/21/18): There is a small to medium size residual mixed attenuation extra-axial collection likely representing some combination of chronic and subacute subdural hematoma and granulation tissue by membrane formation.. The extra-axial collection exerts mild mass-effect on the right cerebral hemisphere however no significant midline shift. Overlying right superior frontoparietal ke hole. Mild generalized volume loss. -Repeat non-contrast CT Head ordered for 11/29/18 to re-evaluate the SDH prior to starting AC. -Continue Mag Oxide 400 mg PO BID for h/a management. -Give 1 dose of Depakote 1 gm IV for h/a. -Continue rehab. -Notify neuro team of any acute changes in pt's condition. Beena Agarwal, DNP, [facility] d/w Dr. Perdue Status: Acute
[2018-11-24] MEDS: Apap-Butalbital-Caffeine 325-50-40mg Tab PO PRN (11:53)
[2018-11-24] MEDS ORDERED: Valproate 1,000 MG in Sodium Chloride 0.9% 100 ML IVPB ONE (13:25)
--- NOTE | 2018-11-24 15:09 | CP.PCM.PN ---
Subjective - Date & Time of Evaluation Date of Evaluation: 11/24/18 Time of Evaluation: 13:00 - Subjective Subjective: no acute complaints at present, wanted to go home but now staying Objective - Vital Signs/Intake and Output Vital Signs (last 24 hours): Temp Pulse Resp BP Pulse Ox 97.7 F 68 21 100/65 98 11/24/18 08:16 11/24/18 08:16 11/24/18 08:16 11/24/18 08:16 11/24/18 08:16 - Medications Medications: Current Medications Acetaminophen/Butalbital/Caffeine (Fioricet) 1 tab PO Q6 PRN PRN Reason: Headache Last Admin: 11/24/18 11:53 Dose: 1 tab Folic Acid (Folic Acid) 1 mg PO DAILY [facility] Last Admin: 11/24/18 08:53 Dose: 1 mg Home Med (Patient's Own Medication) 2 unit PO Q6 PRN PRN Reason: Pain, moderate (4-7) Last Admin: 11/23/18 21:45 Dose: 2 unit Magnesium Sulfate/Dextrose (Magnesium Sulfate 1 Gm/100 Ml D5w) 1 gm in 100 mls @ 200 mls/hr IVPB ONCE [facility] Last Admin: 11/21/18 18:52 Dose: 200 mls/hr Magnesium Oxide (Mag-Ox) 400 mg PO BID [facility] Last Admin: 11/24/18 08:52 Dose: 400 mg Nicotine (Nicoderm Cq) 1 patch TD DAILY [facility] Last Admin: 11/24/18 08:54 Dose: Not Given Ondansetron HCl (Zofran Tab) 4 mg PO Q6 PRN PRN Reason: Nausea/Vomiting Pantoprazole Sodium (Protonix Ec Tab) 40 mg PO DAILY [facility] Last Admin: 11/24/18 08:53 Dose: 40 mg - Labs Labs: 11/19/18 05:15 11/19/18 05:15 PT 13.4 Seconds (9.8-13.1) H 11/19/18 05:15 INR 1.2 11/19/18 05:15 APTT 33.2 Seconds (25.6-37.1) 11/19/18 05:15 - Constitutional Appears: Well - Head Exam Head Exam: ATRAUMATIC, NORMAL INSPECTION, NORMOCEPHALIC - Eye Exam Eye Exam: EOMI, Normal appearance, PERRL Pupil Exam: NORMAL ACCOMODATION - ENT Exam ENT Exam: Mucous Membranes Moist, Normal Exam - Neck Exam Neck Exam: Full ROM, Normal Inspection - Respiratory Exam Respiratory Exam: Clear to Ausculation Bilateral, NORMAL BREATHING PATTERN - Cardiovascular Exam Cardiovascular Exam: REGULAR RHYTHM - GI/Abdominal Exam GI & Abdominal Exam: Soft, Normal Bowel Sounds - Rectal Exam Rectal Exam: NORMAL INSPECTION - Exam External exam: NORMAL EXTERNAL EXAM - Extremities Exam Extremities Exam: Full ROM, Normal Capillary Refill - Back Exam Back Exam: NORMAL INSPECTION - Neurological Exam Neurological Exam: Alert Neuro motor strength exam: Left Lower Extremity: 3 - Psychiatric Exam Psychiatric exam: Normal Affect, Normal Mood - Skin Skin Exam: Dry, Intact Assessment and Plan (1) MTHFR gene mutation Status: Acute (2) Subdural hemorrhage Assessment & Plan: plan for team conference for tomorrowsuad post therapies Status: Acute
[2018-11-25] MEDS: Magnesium Oxide 400 mg Tab UD PO SCH ×2 (09:09→17:24)
[2018-11-25] MEDS: Pantoprazole 40 mg EC Tab PO SCH (09:09)
[2018-11-25 09:35] VITALS: RESP 20
[2018-11-25] MEDS: Apap-Butalbital-Caffeine 325-50-40mg Tab PO PRN ×2 (12:05→20:28)
--- NOTE | 2018-11-25 12:09 | PCM.PSYTMC ---
Acute Rehab Team Conference - - Vital Signs: Vital Signs (Last 8 Hours): Vital Signs 11/25/18 11/25/18 08:09 09:20 Temperature 98.2 F 98.2 F Pulse Rate 73 73 Respiratory 21 20 Rate Blood Pressure 126/71 126/71 O2 Sat by Pulse 99 Oximetry Pain: 0 - Precautions: Precautions: Fall Prevention, Seizure - Medications/Other Issues: Comment: Eliquis on hold, to start 12/01. Dr. Srivastava recommends repeat CT head w/out contrast dut 11/29 prior to start the med. - Consults: Comment: Dr. Srivastava ( Neuro ). Dr. Guajardo ( Hematology ) MTHFR Mutation - Skin: Incision Site: Right parietal area Dressing Status: Clean, Dry, Intact Incision: Healing Well, Sutures Intact, Open Incision Line Treatment: None - Toileting: Toileting: Minimal Assistance - Bladder Management: Bladder Pattern: Normal Voiding Method: Toilet Bladder Management: Minimal Assistance - Transfers: Transfers: Minimal Assistance - ADL's: ADL's: Minimal Assistance - Pain Management: Other Intervention:: Fiorecet one tab every 6 hrs for headache - Patient/Family Teaching: Other Intervention:: Seizure precauiton. Wound care. Safety. Pain mgt. - Goals/Time Frame: Comment: Next Team Conference - Provider: Registered Nurse:: Milagros Mesa Physical Therapy - Bed Mobility Bed Mobility: Supervision - Transfers Wheelchair to Mat: Supervision, Verbal Cues, Contact Guard Sit to Stand: Supervision, Verbal Cues Comment: crutches - Ambulation Level of Assistance: Supervision, Verbal Cues Distance (ft.): 100 Assistive Devices: Crutches Orthoses: n/a Comment: -first trial of gait with single sided R axillary crutch; patient with leaning towards right side with poor weight bearing to LLE during mid-stance and instability noted at the L knee when cued to increase LLE weight bearing. - completed gait today with b axillary crutches. -educated patient on safe use of crutches as well as upright postural control during all phases with keeping crutches closer to body when progressing crutches during gait. -patient uses 3 point step through gait pattern with use of crutches to off-load the LLE due to knee instability/weakness. -patient completed various trials with cues to gradually increase the weight acceptance ability of the LLE during gait as able. -requires CS with intermittent CG for safety. -increased time for completion with standing rest breaks prn due to fatigue of the L knee/hip. -x 10 trials with rest breaks between trials - Stair Negotiation Comment: 1 flight of 8 inch steps with R rail/L crutch on ascent and L rail/R crutch on descent. -step to pattern leading with RLE on ascent and LLE on descent with CS on ascent and CG on descent. -VCs for safety and upright gaze during stair negotiation - Standing Balance Static Stand: Supervision - Pain Pain (assessed during therapy session): 0 - Insight/Carryover Insight/Carryover: Good - Patient/Family Education Comment: safety, therapy schedule, therapy goals, mobility, POC, stroke recovery, healthy lifestyle - Assessment/Plan Assessment: Ms. Gold continues to demonstrate impaired neuromuscular control to the LLE especially at the knee. Patient requires education regarding utilization of energy conservation technique sand techniques to improve normalization of gait pattern. Pt working to improve neuromotor control of L knee as well as to maximize recovery and minimize the utilization of compens atory strategies. Pt utilized B axillary crutches today 2' to fatigue noted in the L knee and impaired gait pattern with use of single crutch. Pt continues to require supervision for safety and cueing to progress gait and ensure normalization of gait mechanics s/p CVA. Pt requires rest breaks and education regarding relaxation techniques to avoid increasing blood pressure. Pt will continue to benefit from skilled PT to maximize safety and independence with all mobility s/p CVA. PT recommends discharge home at completion of full length of stay in acute rehab with b axillary crutches, support of family/friends and outpatient PT to continue addressing skilled needs to maximize return to PLOF. - Goals Timeframe: 7 days Goals: I with bed/mat mobility. mod I with crutches for all transfers. mod I with crutches to ambulate x 1000 feet on all surfaces. mod I to negotiate 2 flights of steps - Provider Physical Therapist:: Monica Mcdonald License Number:: [id number] Occupational Therapy - Arousal/Attention/Orientation Level of Consciousness: Awake, Alert Patient Orientation: Person, Place, Time - ADL/IADL Self Feeding: Independent Grooming: Independent Bathing-Lower Ext: Supervision Dressing-Upper Ext: Independent Dressing-Lower Ext: Supervision Homemaking: Supervision, Contact Guard - Sitting Balance Static Sitting: Independent without upper extremity support Dynamic Sitting: Requires supervision - Transfers Wheelchair to Bed Transfers: Supervision, Verbal Cues, Contact Guard Toilet Transfers: Supervision, Verbal Cues, Contact Guard Tub Transfers: Supervision, Contact Guard - Wheelchair Management Level of Assistance: Supervision Distance (ft.): 150 - Upper Extremity Status Right Upper Extremity Comment: WFLs Left Upper Extremity Comment: WFLs - Pain Pain (assessed during therapy session): 0 - Insight/Carryover Insight/Carryover: Good - Patient/Family Education Comment: dme/ae education, cva recovery - Assessment/Plan Assessment: patient doing well in therapy thus far. patient completes transfers/mobility with cs/cga using axillary crutch ,patient completes showering/dressing routine with overall distance supervision+ pt education energry conservation/fall prevention techniques. patient verbalizes good carryover with all techniques. patient still with c/o headache and LLE weakness. pt would benefit from contined iadl re-training to maximize functional I. recommend cont skilled IP OT services 5-6x/week as per plan of care. recommend d/c to [facility] post IP stay - Goals Timeframe: 1 week - Provider Occupational Therapist:: Stacey Mace License Number: [id number] Recreational Therapy - Participation Participation: Participates in Individual and/or Group Sessions, Monitors His/Her Own Leisure Time - Attendance Attendance: 3-5 times per week - Activities Leisure Activities: Crafts - Socialization Level of Socialization: Initiates/interacts freely with care givers and peer - Diversional Time Diversional Time: word searches, crosswords, coloring - Assessment Assessment/Plan: Pt is agreeable to participate in 1:1 and group recreation therapy sessions throughout stay on unit. Pt has participated in group bingo task with peers as well as participated in coloring task. Pt is independent with all tasks following setup. Pt provided with word searches and crossword puzzles to complete during her free time. Pt is agreeable to receive leisure education as pt demonstrated she wants to identify options of how she can alleviate stress and anxiety to maintain blood pressure levels. Pt provided with education on interventions such as deep breathing, mindfulness, coloring, etc. Pt's mood is stable-positive and will continue to benefit from participating in recreation therapy sessions throughout stay on unit. Problems Currently Limiting Participation: L LE weakness, headache pain Goals and Time Frame: Pt will identify three leisure interventions to utilize as alternatives to decrese pt's stress and anxiety level by date of discharge. - Provider Therapist: Janel Tan Nutrition - Current Diet Current Diet/Supplement/Feedings: Regular diet ensure plus 8 ounces 2 per day - Appetite Percent Meal Consumed: 50-74% - Assessment/Goals/Time Frame Assessments/Goals/Time Frame: Pt at high nutritional risk. goals: 1. Pt to consume 75-100% of meals(not met,continue). 2. Deter wt loss(not met,continue). Follow-up due on 11/28/2018 - Provider Provider: Bree Swain Case Management - Psychosocial Assessment Support Systems: Susan Gold (mother) - [phone] Psychological Interventions/Needs: Patient is AAOx3 and able to verbalize needs Discharge Concerns: Patient has a history of two previous strokes and resumed smoking after both events. Patient/Family Meeting: CM met with patient and rehab team Intervention/Goal/Outcome: 1. Goal: Independent 2. Plan: outpatient PT pending progress 3. DME needs 4. f/u appts 5. continued emotional support 6. revisit patient's requests for information on advanced directive (patient was provideed with information, but has not yet completed for document) - Discharge Plan Discharge Plan: Home with significant other/family Comment: Outpatient - Provider Provider: Esther Thompson License Number: [id number] Rehabilitation Plan - Treatment Plan Treatment Plan: Physical Therapy, Occupational Therapy, Speech, Dietary, Patient/Family Education - Recommendation Recommendation: Physical Therapy, Occupational Therapy, Speech, Dietary, Patient/Family Education - Discharge Plan Discharge to: Home (Dc 11)
--- NOTE | 2018-11-25 12:33 | CP.PCM.PN ---
Subjective - Date & Time of Evaluation Date of Evaluation: 11/25/18 Time of Evaluation: 11:00 - Subjective Subjective: no acute complaints at present Objective - Vital Signs/Intake and Output Vital Signs (last 24 hours): Temp Pulse Resp BP Pulse Ox 98.2 F 73 20 126/71 99 11/25/18 09:20 11/25/18 09:20 11/25/18 09:20 11/25/18 09:20 11/25/18 08:09 - Medications Medications: Current Medications Acetaminophen/Butalbital/Caffeine (Fioricet) 1 tab PO Q6 PRN PRN Reason: Headache Last Admin: 11/25/18 12:05 Dose: 1 tab Folic Acid (Folic Acid) 1 mg PO DAILY [facility] Last Admin: 11/25/18 09:09 Dose: 1 mg Home Med (Patient's Own Medication) 2 unit PO Q6 PRN PRN Reason: Pain, moderate (4-7) Last Admin: 11/23/18 21:45 Dose: 2 unit Magnesium Sulfate/Dextrose (Magnesium Sulfate 1 Gm/100 Ml D5w) 1 gm in 100 mls @ 200 mls/hr IVPB ONCE [facility] Last Admin: 11/21/18 18:52 Dose: 200 mls/hr Magnesium Oxide (Mag-Ox) 400 mg PO BID [facility] Last Admin: 11/25/18 09:09 Dose: 400 mg Nicotine (Nicoderm Cq) 1 patch TD DAILY [facility] Last Admin: 11/25/18 09:09 Dose: Not Given Ondansetron HCl (Zofran Tab) 4 mg PO Q6 PRN PRN Reason: Nausea/Vomiting Pantoprazole Sodium (Protonix Ec Tab) 40 mg PO DAILY [facility] Last Admin: 11/25/18 09:09 Dose: 40 mg - Labs Labs: 11/19/18 05:15 11/19/18 05:15 PT 13.4 Seconds (9.8-13.1) H 11/19/18 05:15 INR 1.2 11/19/18 05:15 APTT 33.2 Seconds (25.6-37.1) 11/19/18 05:15 - Constitutional Appears: Well - Head Exam Head Exam: ATRAUMATIC, NORMAL INSPECTION, NORMOCEPHALIC - Eye Exam Eye Exam: EOMI, Normal appearance, PERRL Pupil Exam: NORMAL ACCOMODATION - ENT Exam ENT Exam: Mucous Membranes Moist, Normal Exam - Neck Exam Neck Exam: Full ROM, Normal Inspection - Respiratory Exam Respiratory Exam: NORMAL BREATHING PATTERN - Cardiovascular Exam Cardiovascular Exam: REGULAR RHYTHM - GI/Abdominal Exam GI & Abdominal Exam: Soft, Normal Bowel Sounds - Rectal Exam Rectal Exam: NORMAL INSPECTION - Exam External exam: NORMAL EXTERNAL EXAM - Extremities Exam Extremities Exam: Full ROM, Normal Capillary Refill - Back Exam Back Exam: NORMAL INSPECTION - Neurological Exam Neurological Exam: Alert Neuro motor strength exam: Left Lower Extremity: 3 - Psychiatric Exam Psychiatric exam: Normal Affect, Normal Mood - Skin Skin Exam: Intact Assessment and Plan (1) MTHFR gene mutation Status: Acute (2) Subdural hemorrhage Assessment & Plan: plan for Dc the outpatient Pt Status: Acute
--- NOTE | 2018-11-25 23:53 | CP.PCM.PN ---
Subjective - Date & Time of Evaluation Date of Evaluation: 11/25/18 Time of Evaluation: 12:00 - Subjective Subjective: Has some headache. Objective - Vital Signs/Intake and Output Vital Signs (last 24 hours): Temp Pulse Resp BP Pulse Ox 98.4 F 89 20 129/78 99 11/25/18 19:59 11/25/18 19:59 11/25/18 19:59 11/25/18 19:59 11/25/18 19:59 - Medications Medications: Current Medications Acetaminophen/Butalbital/Caffeine (Fioricet) 1 tab PO Q6 PRN PRN Reason: Headache Last Admin: 11/25/18 20:28 Dose: 1 tab Folic Acid (Folic Acid) 1 mg PO DAILY [facility] Last Admin: 11/25/18 09:09 Dose: 1 mg Home Med (Patient's Own Medication) 2 unit PO Q6 PRN PRN Reason: Pain, moderate (4-7) Last Admin: 11/23/18 21:45 Dose: 2 unit Magnesium Sulfate/Dextrose (Magnesium Sulfate 1 Gm/100 Ml D5w) 1 gm in 100 mls @ 200 mls/hr IVPB ONCE [facility] Last Admin: 11/21/18 18:52 Dose: 200 mls/hr Magnesium Oxide (Mag-Ox) 400 mg PO BID [facility] Last Admin: 11/25/18 17:24 Dose: 400 mg Nicotine (Nicoderm Cq) 1 patch TD DAILY [facility] Last Admin: 11/25/18 09:09 Dose: Not Given Ondansetron HCl (Zofran Tab) 4 mg PO Q6 PRN PRN Reason: Nausea/Vomiting Pantoprazole Sodium (Protonix Ec Tab) 40 mg PO DAILY [facility] Last Admin: 11/25/18 09:09 Dose: 40 mg - Labs Labs: 11/19/18 05:15 11/19/18 05:15 PT 13.4 Seconds (9.8-13.1) H 11/19/18 05:15 INR 1.2 11/19/18 05:15 APTT 33.2 Seconds (25.6-37.1) 11/19/18 05:15 - Head Exam Head Exam: ATRAUMATIC - Eye Exam Eye Exam: Normal appearance - ENT Exam ENT Exam: Mucous Membranes Dry - Respiratory Exam Respiratory Exam: NORMAL BREATHING PATTERN - Cardiovascular Exam Cardiovascular Exam: +S1, +S2 - GI/Abdominal Exam GI & Abdominal Exam: Normal Bowel Sounds Assessment and Plan (1) MTHFR gene mutation Assessment & Plan: on folic acid was on aspirin 81mg daily, eleiquis 2.5mg BID for recurrent CVA currently on hold for 21 days as recommend by neurosurgery due to restart in 1 week; 12/02 Status: Acute (2) Leukopenia Status: Acute
[2018-11-26] MEDS: Magnesium Oxide 400 mg Tab UD PO SCH ×2 (08:28→16:26)
[2018-11-26] MEDS: Pantoprazole 40 mg EC Tab PO SCH (08:28)
[2018-11-26 20:11] VITALS: BP 128/76
[2018-11-27 08:06] VITALS: PULSE 82; TEMP 97.5; O2SAT 98
[2018-11-27] MEDS: Magnesium Oxide 400 mg Tab UD PO SCH (08:48)
[2018-11-27] MEDS: Pantoprazole 40 mg EC Tab PO SCH (08:49)
--- NOTE | 2018-11-27 09:29 | CT ---
Date of service: 11/27/2018 PROCEDURE: CT HEAD WITHOUT CONTRAST. HISTORY: followup COMPARISON: None available. TECHNIQUE: Axial computed tomography images were obtained through the head/brain without intravenous contrast. Radiation dose: Total exam DLP = 924.99 mGy-cm. This CT exam was performed using one or more of the following dose reduction techniques: Automated exposure control, adjustment of the mA and/or kV according to patient size, and/or use of iterative reconstruction technique. FINDINGS: HEMORRHAGE: Trace subacute likely chronic subdural hematoma is appreciated at the right frontoparietal region with a right ke hole again identified at the anterior margins of the minimal collection once again. There is no significant interval change in the volume of this collection at this time. No new intracranial hemorrhage is appreciable. BRAIN: Normal corticomedullary differentiation is preserved. No parenchymal edema is identified in the midline brain anatomy is unremarkable once again. Unremarkable right ventricular sulcal sternal spaces. VENTRICLES: Unremarkable. No hydrocephalus. CALVARIUM: Unremarkable. PARANASAL SINUSES: Unremarkable as visualized. No significant inflammatory changes. MASTOID AIR CELLS: Unremarkable as visualized. No inflammatory changes. OTHER FINDINGS: None. IMPRESSION: Stable trace right frontal parietal subdural hematoma with right frontal ke hole reiterated. No significant mass effect or interval new intracranial hemorrhage. Brain parenchymal pattern remains grossly within normal limits nevertheless.
--- NOTE | 2018-11-27 11:41 | CP.PCM.PN ---
Subjective - Date & Time of Evaluation Date of Evaluation: 11/27/18 Time of Evaluation: 11:00 - Subjective Subjective: no acute complaints Objective - Vital Signs/Intake and Output Vital Signs (last 24 hours): Temp Pulse Resp BP Pulse Ox 97.5 F L 82 20 128/76 98 11/27/18 08:05 11/27/18 08:05 11/27/18 08:05 11/27/18 08:05 11/27/18 08:05 - Medications Medications: Current Medications Acetaminophen/Butalbital/Caffeine (Fioricet) 1 tab PO Q6 PRN PRN Reason: Headache Last Admin: 11/25/18 20:28 Dose: 1 tab Folic Acid (Folic Acid) 1 mg PO DAILY [facility] Last Admin: 11/27/18 08:48 Dose: 1 mg Home Med (Patient's Own Medication) 2 unit PO Q6 PRN PRN Reason: Pain, moderate (4-7) Last Admin: 11/23/18 21:45 Dose: 2 unit Magnesium Sulfate/Dextrose (Magnesium Sulfate 1 Gm/100 Ml D5w) 1 gm in 100 mls @ 200 mls/hr IVPB ONCE [facility] Last Admin: 11/21/18 18:52 Dose: 200 mls/hr Magnesium Oxide (Mag-Ox) 400 mg PO BID [facility] Last Admin: 11/27/18 08:48 Dose: 400 mg Nicotine (Nicoderm Cq) 1 patch TD DAILY [facility] Last Admin: 11/27/18 09:41 Dose: Not Given Ondansetron HCl (Zofran Tab) 4 mg PO Q6 PRN PRN Reason: Nausea/Vomiting Pantoprazole Sodium (Protonix Ec Tab) 40 mg PO DAILY [facility] Last Admin: 11/27/18 08:49 Dose: 40 mg - Labs Labs: 11/19/18 05:15 11/19/18 05:15 PT 13.4 Seconds (9.8-13.1) H 11/19/18 05:15 INR 1.2 11/19/18 05:15 APTT 33.2 Seconds (25.6-37.1) 11/19/18 05:15 - Constitutional Appears: Well - Head Exam Head Exam: ATRAUMATIC - Eye Exam Eye Exam: EOMI, Normal appearance, PERRL Pupil Exam: NORMAL ACCOMODATION - ENT Exam ENT Exam: Mucous Membranes Moist, Normal Exam - Neck Exam Neck Exam: Full ROM, Normal Inspection - Respiratory Exam Respiratory Exam: NORMAL BREATHING PATTERN - Cardiovascular Exam Cardiovascular Exam: REGULAR RHYTHM - GI/Abdominal Exam GI & Abdominal Exam: Soft, Normal Bowel Sounds - Rectal Exam Rectal Exam: NORMAL INSPECTION - Exam External exam: NORMAL EXTERNAL EXAM - Extremities Exam Extremities Exam: Full ROM, Normal Capillary Refill - Back Exam Back Exam: NORMAL INSPECTION - Neurological Exam Neurological Exam: Alert, Awake Neuro motor strength exam: Left Lower Extremity: 3 - Psychiatric Exam Psychiatric exam: Normal Affect, Normal Mood - Skin Skin Exam: Dry Assessment and Plan (1) MTHFR gene mutation Status: Acute (2) Subdural hemorrhage Assessment & Plan: pldn for Dc today follow up with surgeon, neuroligist and PMd Status: Acute
--- NOTE | 2018-11-27 12:11 | CP.PCM.PCO ---
Physician Communication Note - Physician Communication Note Physician Communication Note: Neuro d/c recommendations
--- NOTE | 2018-11-28 13:57 | CP.PCM.PN ---
Subjective - Date & Time of Evaluation Date of Evaluation: 11/20/18 Objective - Vital Signs/Intake and Output Vital Signs (last 24 hours): Temp Pulse Resp BP Pulse Ox 97.5 F L 82 20 128/76 98 11/27/18 08:05 11/27/18 08:05 11/27/18 08:05 11/27/18 08:05 11/27/18 08:05 - Labs Labs: 11/19/18 05:15 11/19/18 05:15 PT 13.4 Seconds (9.8-13.1) H 11/19/18 05:15 INR 1.2 11/19/18 05:15 APTT 33.2 Seconds (25.6-37.1) 11/19/18 05:15
--- NOTE | 2018-11-28 13:57 | CP.PCM.HP ---
Past Patient History - Past Medical History & Family History Past Medical History?: Yes - Past Social History Smoking Status: Light Smoker < 10 Cigarettes Daily - NEUROLOGICAL HX Cerebrovascular Accident: Yes (2015) Hx Transient Ischemic Attacks (TIA): Yes (2013) - HEMATOLOGICAL/ONCOLOGICAL Hx AIDS: No Hx Anemia: Yes Hx Human Immunodeficiency Virus (HIV): No - MUSCULOSKELETAL/RHEUMATOLOGICAL Hx Falls: No Other/Comment: 11/12/18 recently with left leg weakness, unsteady gait. left leg tends to buckle. - PSYCHIATRIC Hx Substance Use: No - SURGICAL HISTORY Other/Comment: 11/12/2018 - right sided frontal ke hole for drainage of subacute subdural hematoma & insertion of subdural. drain. - ANESTHESIA Hx Anesthesia: Yes Hx Anesthesia Reactions: No Hx Malignant Hyperthermia: No Has any member of the family had a problem w/ anesthesia?: No Meds Home Medications: Home Medication List Medication Instructions Recorded Confirmed Type Apixaban [Eliquis] 2.5 mg PO BID 30 Days #30 tab 11/27/18 Rx Magnesium Oxide [Mag-Ox] 400 mg PO BID #30 tab 11/27/18 Rx Allergies/Adverse Reactions: Allergies Allergy/AdvReac Type Severity Reaction Status Date / Time No Known Allergies Allergy Verified 09/08/14 10:40 Results - Vital Signs Recent Vital Signs: Last Vital Signs Temp 97.5 F L 11/27/18 08:05 Pulse 82 11/27/18 08:05 Resp 20 11/27/18 08:05 BP 128/76 11/27/18 08:05 Pulse Ox 98 11/27/18 08:05 - Labs Result Diagrams: 11/19/18 05:15 11/19/18 05:15
--- NOTE | 2018-11-28 13:58 | CP.PCM.PN ---
Subjective - Date & Time of Evaluation Date of Evaluation: 11/21/18 Objective - Vital Signs/Intake and Output Vital Signs (last 24 hours): Temp Pulse Resp BP Pulse Ox 97.5 F L 82 20 128/76 98 11/27/18 08:05 11/27/18 08:05 11/27/18 08:05 11/27/18 08:05 11/27/18 08:05 - Labs Labs: 11/19/18 05:15 11/19/18 05:15 PT 13.4 Seconds (9.8-13.1) H 11/19/18 05:15 INR 1.2 11/19/18 05:15 APTT 33.2 Seconds (25.6-37.1) 11/19/18 05:15
--- NOTE | 2018-11-28 13:58 | CP.PCM.PN ---
Subjective - Date & Time of Evaluation Date of Evaluation: 11/23/18 Objective - Vital Signs/Intake and Output Vital Signs (last 24 hours): Temp Pulse Resp BP Pulse Ox 97.5 F L 82 20 128/76 98 11/27/18 08:05 11/27/18 08:05 11/27/18 08:05 11/27/18 08:05 11/27/18 08:05 - Labs Labs: 11/19/18 05:15 11/19/18 05:15 PT 13.4 Seconds (9.8-13.1) H 11/19/18 05:15 INR 1.2 11/19/18 05:15 APTT 33.2 Seconds (25.6-37.1) 11/19/18 05:15
--- NOTE | 2018-11-28 13:58 | CP.PCM.PN ---
Subjective - Date & Time of Evaluation Date of Evaluation: 11/22/18 Objective - Vital Signs/Intake and Output Vital Signs (last 24 hours): Temp Pulse Resp BP Pulse Ox 97.5 F L 82 20 128/76 98 11/27/18 08:05 11/27/18 08:05 11/27/18 08:05 11/27/18 08:05 11/27/18 08:05 - Labs Labs: 11/19/18 05:15 11/19/18 05:15 PT 13.4 Seconds (9.8-13.1) H 11/19/18 05:15 INR 1.2 11/19/18 05:15 APTT 33.2 Seconds (25.6-37.1) 11/19/18 05:15
--- NOTE | 2018-11-28 13:59 | CP.PCM.PN ---
Subjective - Date & Time of Evaluation Date of Evaluation: 11/25/18 Objective - Vital Signs/Intake and Output Vital Signs (last 24 hours): Temp Pulse Resp BP Pulse Ox 97.5 F L 82 20 128/76 98 11/27/18 08:05 11/27/18 08:05 11/27/18 08:05 11/27/18 08:05 11/27/18 08:05 - Labs Labs: 11/19/18 05:15 11/19/18 05:15 PT 13.4 Seconds (9.8-13.1) H 11/19/18 05:15 INR 1.2 11/19/18 05:15 APTT 33.2 Seconds (25.6-37.1) 11/19/18 05:15
--- NOTE | 2018-11-28 13:59 | CP.PCM.PN ---
Subjective - Date & Time of Evaluation Date of Evaluation: 11/24/18 Objective - Vital Signs/Intake and Output Vital Signs (last 24 hours): Temp Pulse Resp BP Pulse Ox 97.5 F L 82 20 128/76 98 11/27/18 08:05 11/27/18 08:05 11/27/18 08:05 11/27/18 08:05 11/27/18 08:05 - Labs Labs: 11/19/18 05:15 11/19/18 05:15 PT 13.4 Seconds (9.8-13.1) H 11/19/18 05:15 INR 1.2 11/19/18 05:15 APTT 33.2 Seconds (25.6-37.1) 11/19/18 05:15
--- NOTE | 2018-11-28 14:00 | CP.PCM.PN ---
Subjective - Date & Time of Evaluation Date of Evaluation: 11/26/18 Objective - Vital Signs/Intake and Output Vital Signs (last 24 hours): Temp Pulse Resp BP Pulse Ox 97.5 F L 82 20 128/76 98 11/27/18 08:05 11/27/18 08:05 11/27/18 08:05 11/27/18 08:05 11/27/18 08:05 - Labs Labs: 11/19/18 05:15 11/19/18 05:15 PT 13.4 Seconds (9.8-13.1) H 11/19/18 05:15 INR 1.2 11/19/18 05:15 APTT 33.2 Seconds (25.6-37.1) 11/19/18 05:15
--- NOTE | 2018-11-28 14:00 | CP.PCM.DIS ---
Provider - Provider Date of Admission: 11/18/18 22:05 Attending physician: Saurav Brannon MD Primary care physician: NO FAMILY PROVIDER Consults: 11/18/18 22:44 Physiatry Consult Routine Comment: Consulting Provider: Juliano Santiago Consulting Physician: Juliano Santiago Reason for Consult: Physiatry 11/19/18 08:00 Case Management Referral Routine Comment: Physician Instructions: Reason For Exam: Reason for Referral: Discharge Planning 11/19/18 16:10 Neurology Consult Routine Comment: Consulting Provider: Rafael Srivastava Consulting Physician: Rafael Srivastava Reason for Consult: subdural hemorrhage 11/19/18 16:12 Hematology Oncology Consult Routine Comment: Consulting Provider: Erasto Guajardo Consulting Physician: Erasto Guajardo Reason for Consult: MTHFR gene mutation Time Spent in preparation of Discharge (in minutes): 25 Hospital Course - Lab Results Lab Results: Most Recent Lab Values WBC 4.3 K/uL (4.8-10.8) L 11/19/18 05:15 RBC 4.28 Mil/uL (3.80-5.20) 11/19/18 05:15 Hgb 12.5 g/dL (12.0-16.0) 11/19/18 05:15 Hct 38.1 % (34.0-47.0) 11/19/18 05:15 MCV 89.0 fl (81.0-99.0) 11/19/18 05:15 MCH 29.2 pg (27.0-31.0) 11/19/18 05:15 MCHC 32.8 g/dL (33.0-37.0) L 11/19/18 05:15 RDW 16.9 % (11.5-14.5) H 11/19/18 05:15 Plt Count 286 K/uL (130-400) 11/19/18 05:15 PT 13.4 Seconds (9.8-13.1) H 11/19/18 05:15 INR 1.2 11/19/18 05:15 APTT 33.2 Seconds (25.6-37.1) 11/19/18 05:15 Sodium 139 mmol/l (132-148) 11/19/18 05:15 Potassium 4.1 MMOL/L (3.6-5.0) 11/19/18 05:15 Chloride 103 mmol/L (98-107) 11/19/18 05:15 Carbon Dioxide 23 mmol/L (22-30) 11/19/18 05:15 Anion Gap 17 (10-20) 11/19/18 05:15 BUN 13 mg/dl (7-17) 11/19/18 05:15 Creatinine 0.6 mg/dl (0.7-1.2) L 11/19/18 05:15 Est GFR ( Amer) > 60 11/19/18 05:15 Est GFR (Non-Af Amer) > 60 11/19/18 05:15 POC Glucose (mg/dL) 85 mg/dL (65-110) 11/21/18 12:27 Random Glucose 87 mg/dL (65-105) 11/19/18 05:15 Calcium 9.2 mg/dL (8.4-10.2) 11/19/18 05:15 Total Bilirubin 0.5 mg/dl (0.2-1.3) 11/19/18 05:15 AST 40 U/L (14-36) H 11/19/18 05:15 ALT 44 U/L (9-52) 11/19/18 05:15 Alkaline Phosphatase 51 U/L (38-126) 11/19/18 05:15 Total Protein 7.9 G/DL (6.3-8.2) 11/19/18 05:15 Albumin 4.5 g/dL (3.5-5.0) 11/19/18 05:15 Globulin 3.4 gm/dL (2.2-3.9) 11/19/18 05:15 Albumin/Globulin Ratio 1.3 (1.0-2.1) 11/19/18 05:15 Vitamin B12 450 pg/mL (239-931) 11/19/18 05:15 TSH 3rd Generation 3.13 mIU/ML (0.46-4.68) 11/19/18 05:15 Discharge Exam - Head Exam Head Exam: ATRAUMATIC Discharge Plan - Discharge Medications Prescriptions: Apixaban [Eliquis] 2.5 mg PO BID 30 Days #30 tab Magnesium Oxide [Mag-Ox] 400 mg PO BID #30 tab - Follow Up Plan Condition: STABLE Disposition: HOME/ ROUTINE Instructions: Subdural Hematoma (DC) Additional Instructions: [facility] [place] Out patient [facility] for outpatient Physical Therapy [address] [phone] 12/03/18 @ 130 PM. No strenous activity, no driving till further order by . Appt. w/ Dr Srivastava ( Neurologist ) December @ 215 PM [address] [place] [address] Tel Pls. bring Insurance and photo ID Follow-up w/ Dr BARBY rodríguez ( Neuro Surgeon ) today 11/27/18 @ 1PM for suture removal Pls. bring CT Head Disc w/ your appointment. Keep surgical incision to right parietal open to air , monitor for redness and drainage Referrals: Rafael Srivastava MD [Medical Doctor] - FAMILY PROVIDER,NO [Primary Care Provider] -
== END 2018-11-27 12:00 | disposition home or self-care (01) | DRG 945 ==
PROVIDERS: ADMIT Internal Medicine; ATTEND Internal Medicine
PROC: F07Z9FZ Gait Training/Functional Ambulation Treatment using Assistive, Adaptive, Supportive or Protective Equipment (ICD-10-PCS; principal; 2018-11-18)
PROC: F08Z4FZ Home Management Treatment using Assistive, Adaptive, Supportive or Protective Equipment (ICD-10-PCS; 2018-11-18)
PROC: F07J6FZ Therapeutic Exercise Treatment of Musculoskeletal System - Head and Neck using Assistive, Adaptive, Supportive or Protective Equipment (ICD-10-PCS; 2018-11-19)
PROC: F07M6FZ Therapeutic Exercise Treatment of Musculoskeletal System - Whole Body using Assistive, Adaptive, Supportive or Protective Equipment (ICD-10-PCS; 2018-11-19)
DX: S06.5X9D Traumatic subdural hemorrhage with loss of consciousness of unspecified duration, subsequent encounter (principal); E72.12 Methylenetetrahydrofolate reductase deficiency; D72.819 Decreased white blood cell count, unspecified; R26.81 Unsteadiness on feet; F17.210 Nicotine dependence, cigarettes, uncomplicated; Z86.73 Personal history of transient ischemic attack (TIA), and cerebral infarction without residual deficits; Z79.01 Long term (current) use of anticoagulants; Z79.82 Long term (current) use of aspirin; X58.XXXD Exposure to other specified factors, subsequent encounter